=== PATIENT | female | born 1975 | race Caucasian/White ===

== ENCOUNTER 2023-12-20 06:26 | Day surgery (SDC) | payer MEDICAID ==
[~2023-12-20] VITALS: Ht 157.5 cm; Wt 80.7 kg
[2023-12-20] MEDS ORDERED: MIDAZOLAM HCL 5 MG/5 ML VIAL ONE (07:10)
[2023-12-20] MEDS ORDERED: MEPERIDINE 100 MG INJ. 100 MG/ML VIAL ONE (07:10)
[2023-12-20] MEDS ORDERED: SIMETHICONE 40 MG/0.6 ML ML ONE (07:11)
[2023-12-20 08:29] VITALS: O2SAT 98
[2023-12-20 13:09] VITALS: BP_SYST 115; PULSE 60; RESP 17
== END 2023-12-20 10:21 | disposition home or self-care (01) ==
LOC: SDS 06:26 → SMU 06:27 → SDS 10:21
PROVIDERS: ATTEND Student in an Organized Health Care Education/Training Program
DX: R19.5 Other fecal abnormalities (principal); D12.3 Benign neoplasm of transverse colon; D12.5 Benign neoplasm of sigmoid colon; K64.4 Residual hemorrhoidal skin tags; K64.8 Other hemorrhoids; Z98.891 History of uterine scar from previous surgery; Z90.710 Acquired absence of both cervix and uterus; Z88.0 Allergy status to penicillin
CPT/HCPCS: 45380; 99152; 45385; 88305; 99153; G0378; J2250; J2175; 45382; 45384